=== PATIENT | female | born 1945 | race Caucasian/White ===

== ENCOUNTER 2016-10-26 11:45 | Outpatient (CLI) ==
[2014-03-17 21:26] VITALS: BMI 24.8
[2016-10-26 12:06] LABS: BILIRUBIN,URINE Negative (NEGATIVE); KETONES,URINE Negative (NEGATIVE); LEUKOCYTE ESTERASE ,URINE 2+ (NEGATIVE); NITRITE,URINE Negative (NEGATIVE); PROTEIN,URINE Negative (NEGATIVE); URINE, BLOOD Negative (NEGATIVE)
[2016-10-26 12:08] LABS: ADD URINE MICROSCOPIC YES
[2016-10-26 12:16] LABS: BACTERIA,URINE TRACE (NOT PRESENT)
== END 2016-10-26 11:46 | disposition home or self-care (01) ==
LOC: LAB 11:45
PROVIDERS: ATTEND Internal Medicine
DX: N39.0 Urinary tract infection, site not specified (principal)
CPT/HCPCS: 81001; 87086

== ENCOUNTER 2017-06-27 10:02 | Day surgery (SDC) | payer OTHER ==
[2014-03-17 21:26] VITALS: BMI 24.8
[2017-06-27] MEDS ORDERED: DIPRIVAN 20 ML VIAL IVP ONE (12:20)
[2017-06-27] MEDS ORDERED: VERSED ONE (12:20)
[2017-06-27] MEDS ORDERED: ATROPINE SULFATE ONE (12:20)
[2017-06-27 13:58] VITALS: BP 122/78; TEMP 98
--- NOTE | 2017-08-02 08:21 | OP ---
PROCEDURE: COLONOSCOPY TO THE CECUM WITH SNARE POLYPECTOMY. ENDOSCOPIST: Suleman ZULUAGA M.D. INDICATION: HISTORY OF POLYPS INSTRUMENT: [id number]. MEDICATION: PER ANESTHESIA. DATE OF LAST COLONOSCOPY: 2013 PROCEDURE: The patient was positioned for colonoscopy. The digital rectal exam was negative. The colonoscope was inserted through the anus and advanced to the cecum. The cecum was identified using the ileocecal valve and the appendiceal orifice as landmarks. The scope was slowly withdrawn through an adequately prepped colon. Polyps were removed in the cecum and the ascending colon using snare cautery. The patient had some bradycardia which was treated with Atropine. Diverticuli were noted in the left colon. Retroflex exam was otherwise negative. She tolerated the procedure without immediate complication. Withdraw time 10 minutes and 10 seconds. PLAN: 1. Suggest repeat colonoscopy in 5 years. CC: Dr. Cayden PATHAK
== END 2017-06-27 14:18 | disposition home or self-care (01) ==
LOC: SURG 10:02
PROVIDERS: ATTEND Internal Medicine Gastroenterology
DX: Z09 Encounter for follow-up examination after completed treatment for conditions other than malignant neoplasm (principal); Z86.010 Personal history of colon polyps; D12.2 Benign neoplasm of ascending colon; D12.0 Benign neoplasm of cecum; K57.30 Diverticulosis of large intestine without perforation or abscess without bleeding; R00.1 Bradycardia, unspecified

== ENCOUNTER 2017-07-05 09:56 | Outpatient (CLI) ==
[2014-03-17 21:26] VITALS: BMI 24.8
[2017-07-05] MEDS ORDERED: PROLIA SUBCUT STA (10:01)
== END 2017-07-05 09:57 | disposition home or self-care (01) ==
LOC: OPMED 09:56
PROVIDERS: ATTEND Internal Medicine
DX: M81.0 Age-related osteoporosis without current pathological fracture (principal)
CPT/HCPCS: 96372

== ENCOUNTER 2018-01-31 11:37 | Outpatient (CLI) ==
[2014-03-17 21:26] VITALS: BMI 24.8
--- NOTE | 2018-01-31 13:25 | DI ---
EXAM: Three views of the right shoulder. History: Right shoulder pain. Findings: No acute fracture or dislocation. Calcifications seen along the course of the rotator cuf f tendons. Joint spaces are relatively preserved. Impression: 1. No acute osseous abnormality. 2. Probable calcific tendonitis of the rotator cuff
== END 2018-01-31 11:38 | disposition home or self-care (01) ==
LOC: RAD 11:37
PROVIDERS: ATTEND Nurse Practitioner
DX: M25.511 Pain in right shoulder (principal)

== ENCOUNTER 2018-04-06 11:00 | Outpatient (RCR) ==
[2014-03-17 21:26] VITALS: BMI 24.8
--- NOTE | 2018-03-24 15:03 | RS.OTEVAL ---
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 Level of Function: Pt is favoring her RUE and using the LUE for most ADLs. Pt is driving and has pain with RUE shoulder abduction. Functional Limitations: Self Care, Reaching, Pushing, Pulling, Lifting, Carrying Current Complaints/Gains: Pt has pain of 6/10 in RUE shoulder abducton and then when she moves her arm she hurst more. Medical History Medical History: Arthritis Medical History Comments:: Shoulder pain for 6 months while taking care of her mother. Pt has had recurrent UTI and was told to stop caffeine and citrus foods to reduce acidity. Surgical History Comments:: hysterectomy, cystocele, rectocele, gall bladder, cataract, Knee- meniscal, tubal ligation, breast biopsies, tonsillectomy. Smoking Status: Never smoker Hx Home Medications: Pravachol, cymbalta, tramadol, tizanidine HCL, Tizanidine HCL, XANAX, Prednisone, Topamax, Fish oil, [place], Calcium, Glucosamine, Miralax , B12, Adrenal cortex, Estradol Vag. Cream Patient's Goals: To be able to use the RUE without pain. Pain Assessment - Pain Description Pain Description: Sharp, Acute Pain Location: Right detoid area and posterior scapula Pain Description: sharp Current Pain Intensity: 6 Worst Pain Intensity: 10 Functional Outcome Measures UE Functional Index: 55 - G Codes & Severity Modifier G Codes: Current is CK, Goal is CI Source of G Code score: Carrying, moving, and handling. Observation - Observation Posture: Forward Head, Rounded Shoulders Handedness: Right Shoulder ROM: Left WFL's Shoulder Muscle Strength: Left WFL's - Right Shoulder ROM Right Shoulder Flexion: 145 Right Shoulder Extension: 50 Right Shoulder Abduction: 95 (Had increased pain) Right Shoulder Horizontal Abduction: 35 Right Shoulder Horizontal Adduction: 35 Right Shoulder Internal Rotation: 63 Right Shoulder External Rotation: 35 (Pt had increased pain ) Right Shoulder ROM Limitations: Soft Tissue Tightness, Muscle Weakness, Pain - Left Shoulder Strength Left Shoulder Flexion: 4+ Good + Left Shoulder Extension: 4+ Good + Left Shoulder Abduction: 4+ Good + Left Shoulder Adduction: 4+ Good + Left Shoulder External Rotation: 4+ Good + Left Shoulder Internal Rotation: 4+ Good + - Right Shoulder Strength Right Shoulder Flexion: 3- Fair- Right Shoulder Extension: 3- Fair- Right Shoulder Abduction: 3- Fair- Right Shoulder Adduction: 3- Fair- Right Shoulder External Rotation: 3- Fair- Right Shoulder Internal Rotation: 3- Fair- Elbow ROM: Bilaterally WFL's Elbow Muscle Strength: Bilaterally WFL's - Left Elbow Strength Left Elbow Extension: 4 Good Left Elbow Flexion: 4 Good Left Forearm Pronation: 4 Good Left Forearm Supination: 4 Good - Right Elbow Strength Right Elbow Extension: 3 Fair Right Elbow Flexion: 3 Fair Right Forearm Pronation: 3 Fair Right Forearm Supination: 3 Fair Wrist ROM: Bilaterally WFL's Wrist Muscle Strength: Bilaterally WFL's (Pt's clinical product specialist was not tested due to her arthritic digits hurting her.) - Left Wrist Strength Left Wrist Extension: 4+ Good + Left Wrist Flexion: 4+ Good + Left Wrist Radial Deviation: 4+ Good + Left Wrist Ulnar Deviation: 4+ Good + Left Forearm Pronation: 4+ Good + Left Forearm Supination: 4+ Good + - Right Wrist Strength Right Wrist Extension: 4 Good Right Wrist Flexion: 4 Good Right Wrist Radial Deviation: 4 Good Right Wrist Ulnar Deviation: 4 Good Right Forearm Pronation: 4 Good Right Forearm Supination: 4 Good Palpation Palpation Findings: Tenderness, Trigger Point Sensation Right Upper Extremity: Intact/Normal Right Lower Extremity: Intact/Normal Left Upper Extremity: Intact/Normal Interventions - Exercise/Activities Exercise/Activities/Manual Therapy: Manual therapy to tender points and trigger points to decrease pain in right serratus posterior, subscapularis on posterior scapula. CP to right shoulder - Objective Findings Objective Findings:: Pt has inflammation in right shoulder and pain in the right deltoid and posterior scapula. Pt has limited external rotation, taut muscles in the pectorailis muscle. - Charges Timed Code Treatment Minutes: 65 Total Treatment Time: 60 Procedures billed for this date of service:: Evaluation- medium, MT x 2 EVALUATION COMPLEXITY LEVEL: HISTORY: Medium, EXAM OF BODY SYSTEMS: Medium, CLINICAL DECISION MAKING: Medium Assessment Assessment: Pt has pain with RUE shoulder ABD, and limited EXT. ROT. Pt has pain with Ext. Rot. Patient Education: Education of diagnosis, Body/Joint mechanics, Home Exercise Program, Education of Plan of Care Rehab Potential: Good Problems/Comments: Pt has pain with abduction of RUE shoulder. Pt has weakness of RUE. Short Term Goals Goal #1: Pt pain to decrease to 2-4 in RUE shoulder Goal to be met by: 04/07/18 Goal #2: Pt to be independent with home exercise program. Goal to be met by: 04/07/18 Goal #3: Pt to increase strength of RUE to 4-/5. Goal to be met by: 04/07/18 Goal #4: Pt to increase RUE ABD to 0-135. Goal to be met by: 04/07/18 Private Watchman Goals Goal #1: Pt pain to decrease to 0-2 in RUE shoulder Goal to be met by: 04/24/18 Goal to be met by: 04/21/18 Goal #3: Pt to increase strength of RUE to 4+/5. Goal to be met by: 04/21/18 Goal #4: Pt to have full AROM of RUE in order to complete ADLS. Goal to be met by: 04/21/18 Plan - Treatment to be provided Procedures: Therapeutic Exercises, Therapeutic Activity, Neuromuscular Rehab, Manual Therapy, Patient Education Modalities: Electrical Stimulation, Ultrasound/Phonophoresis, Class IV Laser, Cryotherapy, Hot Packs - Treatment Plan Frequency: 3 X week Duration: 4 weeks ORDER # VISITS AND/OR THROUGH DATE: 12 - Treatment Code (1) Shoulder stiffness Qualifiers: Laterality: right Qualified Code(s): M25.611 - Stiffness of right shoulder , not elsewhere classified Comments: M25.611 Right shoulder stiffness (2) Shoulder pain, right Code(s): M25.511 - PAIN IN RIGHT SHOULDER Comments: M25.511 Right shoulder pain.
--- NOTE | 2018-03-28 13:14 | RS.OTDNOTE ---
Subjective Date of Note: 03/28/18 Visit #: 2 Date of Evaluation: 03/24/18 Treatment Diagnosis: RTC disorder of bursae & tendons in shoulder *Precautions: at risk for frozen shoulder Current Complaints/Gains: Pt states UE pain with c/o numbness at times from yrs of taking care of her mother. States she has a tens unit at home but has not utilized for UE pain. States she has had injections that only helped a little. Pain Assessment - Pain Description Pain Description: Sharp, Acute Pain Location: Right detoid area and posterior scapula Pain Description: sharp Modalities - Treatment Modality: Electrical Stim Unattended Parameters/Method Applied: Hi-volt to pt tolerance Treatment Area: shoulder Patient Position: Sitting - Hot Pack/Cryotherapy Treatment: Cryotherapy Comments:: CP applied x 20 mins during estim Interventions - Exercise/Activities Exercise/Activities/Manual Therapy: Manual therapy to tender points and trigger points to decrease pain in right serratus posterior, subscapularis on posterior scapula. PROM/gentle stretching and isometric ex's also performed 07/10. - Objective Findings Objective Findings:: Pt has inflammation in right shoulder and pain in the right deltoid and posterior scapula. Pt has limited external rotation, taut muscles in the pectorailis muscle. - Charges Timed Code Treatment Minutes: 58 Total Treatment Time: 61 Procedures billed for this date of service:: CP ESTIM EX MT Assessment Patient Education: Education of diagnosis, Body/Joint mechanics, Home Exercise Program, Home Safety, Activity Modification, Education of Plan of Care Patient demonstrates compliance with HEP?: Yes Short Term Goals Goal #1: Pt pain to decrease to 2-4 in RUE shoulder Goal to be met by: 04/07/18 Progress towards goal: Progressing Goal #2: Pt to be independent with home exercise program. Goal to be met by: 04/07/18 Progress towards goal: Progressing Goal #3: Pt to increase strength of RUE to 4-/5. Goal to be met by: 04/07/18 Progress towards goal: Progressing Goal #4: Pt to increase RUE ABD to 0-135. Goal to be met by: 04/07/18 Progress towards goal: Progressing Care Home Goals Goal #1: Pt pain to decrease to 0-2 in RUE shoulder Goal to be met by: 04/24/18 Progress towards goal: Progressing Goal to be met by: 04/21/18 Progress towards goal: Progressing Goal #3: Pt to increase strength of RUE to 4+/5. Goal to be met by: 04/21/18 Progress towards goal: Progressing Goal #4: Pt to have full AROM of RUE in order to complete ADLS. Goal to be met by: 04/21/18 Progress towards goal: Progressing Plan PLAN OF CARE EXPIRES ON:: 04/21/18 ORDER # VISITS AND/OR THROUGH DATE: 12 PLAN: Cont per POC to max fx use, strength, ROM with decreased c/o pain
--- NOTE | 2018-03-30 13:27 | RS.OTDNOTE ---
Subjective Date of Note: 03/30/18 Visit #: 3 Date of Evaluation: 03/24/18 Treatment Diagnosis: RTC disorder of bursae & tendons in shoulder *Precautions: at risk for frozen shoulder Current Complaints/Gains: Pt states decreased c/o pain. States pain at 0 at times and increases with abd/flexion, "But doesn't seem as tight". Pain Assessment - Pain Description Pain Description: Sharp, Acute Pain Location: Right detoid area and posterior scapula Pain Description: sharp Modalities - Treatment Modality: US with ES (Comb.) Parameters/Method Applied: X20 mins to pt tolerance of estim with US at 1.5w/ cm2 anterior/middle deltoid. Patient Position: Sitting - Hot Pack/Cryotherapy Treatment: Cryotherapy Comments:: CP X20 mins Interventions - Exercise/Activities Exercise/Activities/Manual Therapy: Manual therapy to tender points and trigger points to decrease pain in right serratus posterior, subscapularis on posterior scapula. PROM/gentle stretching and isometric ex's also performed 07/10. Pt ed on codman's ex and door frame stretches. - Objective Findings Objective Findings:: Pt has inflammation in right shoulder and pain in the right deltoid and posterior scapula. Pt has limited external rotation, taut muscles in the pectorailis muscle. - Charges Timed Code Treatment Minutes: 48 Total Treatment Time: 48 Procedures billed for this date of service:: CP US/COMBO EX Assessment Patient Education: Education of diagnosis, Body/Joint mechanics, Home Exercise Program, Home Safety, Activity Modification, Education of Plan of Care Patient demonstrates compliance with HEP?: Yes Short Term Goals Goal #1: Pt pain to decrease to 2-4 in RUE shoulder Goal to be met by: 04/07/18 Progress towards goal: Progressing Goal #2: Pt to be independent with home exercise program. Goal to be met by: 04/07/18 Progress towards goal: Progressing Goal #3: Pt to increase strength of RUE to 4-/5. Goal to be met by: 04/07/18 Progress towards goal: Partially Met Goal #4: Pt to increase RUE ABD to 0-135. Goal to be met by: 04/07/18 Progress towards goal: Progressing Nursing Home Goals Goal #1: Pt pain to decrease to 0-2 in RUE shoulder Goal to be met by: 04/24/18 Progress towards goal: Progressing Goal to be met by: 04/21/18 Progress towards goal: Progressing Goal #3: Pt to increase strength of RUE to 4+/5. Goal to be met by: 04/21/18 Progress towards goal: Progressing Goal #4: Pt to have full AROM of RUE in order to complete ADLS. Goal to be met by: 04/21/18 Progress towards goal: Progressing Plan PLAN OF CARE EXPIRES ON:: 04/21/18 ORDER # VISITS AND/OR THROUGH DATE: 12 PLAN: Cont per POC to max fx UE strength and AROM with decreased c/o pain.
--- NOTE | 2018-03-31 15:59 | RS.OTDNOTE ---
Subjective Date of Note: 03/31/18 Visit #: 4 Date of Evaluation: 03/24/18 Treatment Diagnosis: RTC disorder of bursae & tendons in shoulder *Precautions: at risk for frozen shoulder Current Complaints/Gains: Pt states she can tell improvement in her UE. States pain reaches high of 6-7 with AROM/abduction. States GS is weak but seems to be getting a little better. GS at 24#(R), 34#(L). Pain Assessment - Pain Description Pain Description: Sharp, Acute Pain Location: Right detoid area and posterior scapula Pain Description: sharp Current Pain Intensity: 2-3 Worst Pain Intensity: 6-7 Modalities - Treatment Modality: US with ES (Comb.) Parameters/Method Applied: To pt tolerance x 10 mins Patient Position: Sitting - Hot Pack/Cryotherapy Treatment: Cryotherapy Comments:: X10 mins following TE Interventions - Exercise/Activities Exercise/Activities/Manual Therapy: Manual therapy to tender points and trigger points to decrease pain in right serratus posterior, subscapularis on posterior scapula. PROM/gentle stretching and isometric ex's also performed 07/10. Pt ed on codman's ex and door frame stretches. Gradded digi-flex performed yellow- blue - Objective Findings Objective Findings:: Pt has inflammation in right shoulder and pain in the right deltoid and posterior scapula. Pt has limited external rotation, taut muscles in the pectorailis muscle. - Charges Timed Code Treatment Minutes: 48 Total Treatment Time: 51 Procedures billed for this date of service:: US/COMBO EX CP Assessment Patient Education: Education of diagnosis, Body/Joint mechanics, Home Exercise Program, Home Safety, Activity Modification, Education of Plan of Care Patient demonstrates compliance with HEP?: Yes Short Term Goals Goal #1: Pt pain to decrease to 2-4 in RUE shoulder Goal to be met by: 04/07/18 Progress towards goal: Progressing Goal #2: Pt to be independent with home exercise program. Goal to be met by: 04/07/18 Progress towards goal: Progressing Goal #3: Pt to increase strength of RUE to 4-/5. Goal to be met by: 04/07/18 Progress towards goal: Partially Met Goal #4: Pt to increase RUE ABD to 0-135. Goal to be met by: 04/07/18 Progress towards goal: Partially Met Group Home Goals Goal #1: Pt pain to decrease to 0-2 in RUE shoulder Goal to be met by: 04/24/18 Progress towards goal: Progressing Goal to be met by: 04/21/18 Progress towards goal: Progressing Goal #3: Pt to increase strength of RUE to 4+/5. Goal to be met by: 04/21/18 Progress towards goal: Progressing Goal #4: Pt to have full AROM of RUE in order to complete ADLS. Goal to be met by: 04/21/18 Progress towards goal: Progressing Plan PLAN OF CARE EXPIRES ON:: 04/24/18 ORDER # VISITS AND/OR THROUGH DATE: 12 PLAN: Cont per pOC to max fx use and strength/ROM
--- NOTE | 2018-04-04 14:52 | RS.OTDNOTE ---
Subjective Date of Note: 04/04/18 Visit #: 5 Date of Evaluation: 03/24/18 Treatment Diagnosis: RTC disorder of bursae & tendons in shoulder *Precautions: at risk for frozen shoulder Current Complaints/Gains: Pt states increased AROM with decreased c/o pain. Pain Assessment - Pain Description Pain Description: Sharp, Acute Pain Location: Right detoid area and posterior scapula Pain Description: sharp Current Pain Intensity: 2-3 Worst Pain Intensity: 5 Modalities - Treatment Modality: Ultrasound Parameters/Method Applied: 1.5w/cm2 x 10 mins Interventions - Exercise/Activities Exercise/Activities/Manual Therapy: Manual therapy to tender points and trigger points to decrease pain in right serratus posterior, subscapularis on posterior scapula. PROM/gentle stretching and isometric ex's also performed 07/10. Pt ed on codman's ex and door frame stretches. Gradded digi-flex performed yellow- blue - Objective Findings Objective Findings:: Pt has inflammation in right shoulder and pain in the right deltoid and posterior scapula. Pt has limited external rotation, taut muscles in the pectorailis muscle. - Charges Timed Code Treatment Minutes: 47 Total Treatment Time: 59 Procedures billed for this date of service:: CP US EX MT Assessment Patient Education: Education of diagnosis, Body/Joint mechanics, Home Exercise Program, Home Safety, Activity Modification, Education of Plan of Care Patient demonstrates compliance with HEP?: Yes Short Term Goals Goal #1: Pt pain to decrease to 2-4 in RUE shoulder Goal to be met by: 04/07/18 Progress towards goal: Progressing Goal #2: Pt to be independent with home exercise program. Goal to be met by: 04/07/18 Progress towards goal: Progressing Goal #3: Pt to increase strength of RUE to 4-/5. Goal to be met by: 04/07/18 Progress towards goal: Partially Met Goal #4: Pt to increase RUE ABD to 0-135. Goal to be met by: 04/07/18 Progress towards goal: Partially Met Compensation And Benefits Advisor Goals Goal #1: Pt pain to decrease to 0-2 in RUE shoulder Goal to be met by: 04/24/18 Progress towards goal: Progressing Goal to be met by: 04/21/18 Progress towards goal: Progressing Goal #3: Pt to increase strength of RUE to 4+/5. Goal to be met by: 04/21/18 Progress towards goal: Progressing Goal #4: Pt to have full AROM of RUE in order to complete ADLS. Goal to be met by: 04/21/18 Progress towards goal: Progressing Plan PLAN OF CARE EXPIRES ON:: 04/21/18 ORDER # VISITS AND/OR THROUGH DATE: 12 PLAN: cont per POC to max fx use and UE strength.
--- NOTE | 2018-04-06 14:10 | RS.OTDNOTE ---
Subjective Date of Note: 04/06/18 Visit #: 6 Date of Evaluation: 03/24/18 Treatment Diagnosis: RTC disorder of bursae & tendons in shoulder *Precautions: at risk for frozen shoulder Current Complaints/Gains: Pt states UE feels better. States 0 pain with lifting arm up or backwards this date but states "tightness" Pain Assessment - Pain Description Pain Description: Sharp, Acute Pain Location: Right detoid area and posterior scapula Pain Description: sharp Current Pain Intensity: 0 Worst Pain Intensity: 3 Modalities - Treatment Modality: US with ES (Comb.) Parameters/Method Applied: x15 mins, US to deltoid/AC joint and estim to posterior shoulder to max of 7V - Hot Pack/Cryotherapy Treatment: Cryotherapy Comments:: CP and ice massage performed Interventions - Exercise/Activities Exercise/Activities/Manual Therapy: Manual therapy to tender points and trigger points to decrease pain in right serratus posterior, subscapularis on posterior scapula. PROM/gentle stretching and isometric ex's also performed 10/3 x 4 directions. Pt ed on codman's ex and door frame stretches. Gradded digi-flex performed yellow-blue - Objective Findings Objective Findings:: Pt has inflammation in right shoulder and pain in the right deltoid and posterior scapula. Pt has limited external rotation, taut muscles in the pectorailis muscle. - Charges Timed Code Treatment Minutes: 50 Total Treatment Time: 52 Procedures billed for this date of service:: CP EX US combo Assessment Patient Education: Education of diagnosis, Body/Joint mechanics, Home Exercise Program, Home Safety, Activity Modification, Education of Plan of Care Patient demonstrates compliance with HEP?: Yes Short Term Goals Goal #1: Pt pain to decrease to 2-4 in RUE shoulder Goal to be met by: 04/07/18 Progress towards goal: Met Goal #2: Pt to be independent with home exercise program. Goal to be met by: 04/07/18 Progress towards goal: Partially Met Goal #3: Pt to increase strength of RUE to 4-/5. Goal to be met by: 04/07/18 Progress towards goal: Partially Met Goal #4: Pt to increase RUE ABD to 0-135. Goal to be met by: 04/07/18 Progress towards goal: Partially Met [facility] Goals Goal #1: Pt pain to decrease to 0-2 in RUE shoulder Goal to be met by: 04/24/18 Progress towards goal: Progressing Goal to be met by: 04/21/18 Progress towards goal: Progressing Goal #3: Pt to increase strength of RUE to 4+/5. Goal to be met by: 04/21/18 Progress towards goal: Progressing Goal #4: Pt to have full AROM of RUE in order to complete ADLS. Goal to be met by: 04/21/18 Progress towards goal: Progressing Plan PLAN OF CARE EXPIRES ON:: 04/21/18 ORDER # VISITS AND/OR THROUGH DATE: 12 PLAN: Pt to continue per POC.
--- NOTE | 2018-04-07 11:03 | RS.OTCXNS ---
OT Case Note Date of Scheduled Appointment: 04/07/18 Type: Cancel (Pt's granddgtr is sick)
== END 2018-04-08 23:59 ==
PROVIDERS: ATTEND Nurse Practitioner
DX: M75.51 Bursitis of right shoulder (principal)

== ENCOUNTER 2018-04-20 11:00 | Outpatient (RCR) ==
[2014-03-17 21:26] VITALS: BMI 24.8
--- NOTE | 2018-04-11 09:14 | RS.OTDNOTE ---
Subjective Date of Note: 04/10/18 Visit #: 7 Date of Evaluation: 03/24/18 Treatment Diagnosis: RTC disorder of bursae & tendons in shoulder *Precautions: at risk for frozen shoulder Current Complaints/Gains: Pt states UE feels much better and has no c/o pain in bicep and middle deltoid now but has "a spot" that continues to hurt. Pain Assessment - Pain Description Pain Description: Dull, Throbbing Pain Location: Right detoid area and posterior scapula Pain Description: sharp Current Pain Intensity: 0 Worst Pain Intensity: 4 Modalities - Treatment Modality: Ultrasound Parameters/Method Applied: Pulsed at 50%, .04w/cm2 x 10 mins Treatment Area: AC joint Patient Position: Sitting - Hot Pack/Cryotherapy Treatment: Cryotherapy (Ice massage performed along with CP applied to shoulder) Interventions - Exercise/Activities Exercise/Activities/Manual Therapy: Manual therapy to tender points and trigger points to decrease pain in right serratus posterior, subscapularis on posterior scapula. PROM/gentle stretching and isometric ex's also performed 10/3 x 4 directions. Pt ed on codman's ex and door frame stretches. Gradded digi-flex performed yellow-blue. - Objective Findings Objective Findings:: Pt has inflammation in right shoulder and pain in the right deltoid and posterior scapula. Pt has limited external rotation, taut muscles in the pectorailis muscle. - Charges Timed Code Treatment Minutes: 48 Total Treatment Time: 48 Procedures billed for this date of service:: CP US MT Assessment Patient Education: Education of diagnosis, Body/Joint mechanics, Home Exercise Program, Home Safety, Activity Modification, Education of Plan of Care Patient demonstrates compliance with HEP?: Yes Short Term Goals Goal #1: Pt pain to decrease to 2-4 in RUE shoulder Goal to be met by: 04/07/18 Progress towards goal: Met Goal #2: Pt to be independent with home exercise program. Goal to be met by: 04/07/18 Progress towards goal: Met Goal #3: Pt to increase strength of RUE to 4-/5. Goal to be met by: 04/07/18 Progress towards goal: Met Goal #4: Pt to increase RUE ABD to 0-135. Goal to be met by: 04/07/18 Progress towards goal: Met Mud Analysis Supervisor Goals Goal #1: Pt pain to decrease to 0-2 in RUE shoulder Goal to be met by: 04/24/18 Progress towards goal: Progressing Goal to be met by: 04/21/18 Progress towards goal: Progressing Goal #3: Pt to increase strength of RUE to 4+/5. Goal to be met by: 04/21/18 Progress towards goal: Progressing Goal #4: Pt to have full AROM of RUE in order to complete ADLS. Goal to be met by: 04/21/18 Progress towards goal: Progressing Plan PLAN OF CARE EXPIRES ON:: 04/24/18 ORDER # VISITS AND/OR THROUGH DATE: 12 PLAN: Cont per POC
--- NOTE | 2018-04-11 13:35 | RS.OTDNOTE ---
Subjective Date of Note: 04/11/18 Visit #: 8 Date of Evaluation: 03/24/18 Treatment Diagnosis: RTC disorder of bursae & tendons in shoulder *Precautions: at risk for frozen shoulder Current Complaints/Gains: States she feels improvement with UE pain except " that one spot." States she will perform HEP and apply CP over the wk. Pain Assessment - Pain Description Pain Description: Dull, Throbbing Pain Location: Right detoid area and posterior scapula Pain Description: sharp Current Pain Intensity: 0 Worst Pain Intensity: 3 Modalities - Treatment Modality: Ultrasound Parameters/Method Applied: .04w/cm2 x 10 mins Treatment Area: shoulder with UE in abd Patient Position: Supine - Treatment Modality: Class 4 Laser Parameters/Method Applied: Chronic pain protocol Patient Position: Supine Interventions - Exercise/Activities Exercise/Activities/Manual Therapy: Manual therapy to tender points and trigger points to decrease pain in right serratus posterior, subscapularis on posterior scapula. PROM/gentle stretching and isometric ex's also performed 10/3 x 4 directions. Pt ed on codman's ex and door frame stretches. Gradded digi-flex performed yellow-blue. - Objective Findings Objective Findings:: Pt has inflammation in right shoulder and pain in the right deltoid and posterior scapula. Pt has limited external rotation, taut muscles in the pectorailis muscle. - Charges Timed Code Treatment Minutes: 50 Total Treatment Time: 58 Procedures billed for this date of service:: CP US MT (0 charge laser) Assessment Patient Education: Education of diagnosis, Body/Joint mechanics, Home Exercise Program, Home Safety, Activity Modification, Education of Plan of Care Patient demonstrates compliance with HEP?: Yes Short Term Goals Goal #1: Pt pain to decrease to 2-4 in RUE shoulder Goal to be met by: 04/07/18 Progress towards goal: Met Goal #2: Pt to be independent with home exercise program. Goal to be met by: 04/07/18 Progress towards goal: Met Goal #3: Pt to increase strength of RUE to 4-/5. Goal to be met by: 04/07/18 Progress towards goal: Met Goal #4: Pt to increase RUE ABD to 0-135. Goal to be met by: 04/07/18 Progress towards goal: Met Mcfp Goals Goal #1: Pt pain to decrease to 0-2 in RUE shoulder Goal to be met by: 04/24/18 Progress towards goal: Progressing Goal to be met by: 04/21/18 Progress towards goal: Progressing Goal #3: Pt to increase strength of RUE to 4+/5. Goal to be met by: 04/21/18 Progress towards goal: Progressing Goal #4: Pt to have full AROM of RUE in order to complete ADLS. Goal to be met by: 04/21/18 Progress towards goal: Progressing Plan PLAN OF CARE EXPIRES ON:: 04/21/18 ORDER # VISITS AND/OR THROUGH DATE: 12 PLAN: Pt to cont to max fx strength and I with all ADL's
--- NOTE | 2018-04-18 14:44 | RS.OTDNOTE ---
Subjective Date of Note: 04/18/18 Visit #: 9 Date of Evaluation: 03/24/18 Treatment Diagnosis: RTC disorder of bursae & tendons in shoulder *Precautions: at risk for frozen shoulder Current Complaints/Gains: Pt states UE pain is much better. States she had an estate sale at her mother's house this wknd but tried to not lift a lot and did apply a CP during the day. Pain Assessment - Pain Description Pain Description: Dull, Throbbing Pain Location: Right detoid area and posterior scapula Pain Description: sharp Current Pain Intensity: 0-1 Worst Pain Intensity: 3 Modalities - Treatment Modality: Ultrasound Parameters/Method Applied: 1.5w/cm2 x 10 mins to x 2 areas (medial and lateral inferior border of scapula) Treatment Area: UE in abucted ER Patient Position: Supine - Hot Pack/Cryotherapy Treatment: Cryotherapy Interventions - Exercise/Activities Exercise/Activities/Manual Therapy: Manual therapy to tender points and trigger points to decrease pain in right serratus posterior, subscapularis on posterior scapula. PROM/gentle stretching and isometric ex's also performed 10/3 x 4 directions. Pt ed on codman's ex and door frame stretches. Gradded digi-flex performed yellow-blue. - Objective Findings Objective Findings:: Pt has inflammation in right shoulder and pain in the right deltoid and posterior scapula. Pt has limited external rotation, taut muscles in the pectorailis muscle. - Charges Timed Code Treatment Minutes: 48 Total Treatment Time: 58 Procedures billed for this date of service:: CP USCOMBO EX MT Assessment Patient Education: Education of diagnosis, Body/Joint mechanics, Home Exercise Program, Home Safety, Activity Modification, Education of Plan of Care Patient demonstrates compliance with HEP?: Yes Short Term Goals Goal #1: Pt pain to decrease to 2-4 in RUE shoulder Goal to be met by: 04/07/18 Progress towards goal: Met Goal #2: Pt to be independent with home exercise program. Goal to be met by: 04/07/18 Progress towards goal: Met Goal #3: Pt to increase strength of RUE to 4-/5. Goal to be met by: 04/07/18 Progress towards goal: Met Goal #4: Pt to increase RUE ABD to 0-135. Goal to be met by: 04/07/18 Progress towards goal: Met Loan Consultant Goals Goal #1: Pt pain to decrease to 0-2 in RUE shoulder Goal to be met by: 04/24/18 Progress towards goal: Progressing Goal to be met by: 04/21/18 Progress towards goal: Progressing Goal #3: Pt to increase strength of RUE to 4+/5. Goal to be met by: 04/21/18 Progress towards goal: Progressing Goal #4: Pt to have full AROM of RUE in order to complete ADLS. Goal to be met by: 04/21/18 Progress towards goal: Partially Met Plan PLAN OF CARE EXPIRES ON:: 04/24/18 ORDER # VISITS AND/OR THROUGH DATE: 12 PLAN: Cont per POC
--- NOTE | 2018-04-20 16:19 | RS.OTDNOTE ---
Subjective Date of Note: 04/20/18 Visit #: 10 Date of Evaluation: 03/24/18 Treatment Diagnosis: RTC disorder of bursae & tendons in shoulder *Precautions: at risk for frozen shoulder Current Complaints/Gains: Pt states she feels 90% better. States she has been karl and writing easier. States pain remains and demo abduction. Pain Assessment - Pain Description Pain Description: Dull, Throbbing Pain Location: Right detoid area and posterior scapula Pain Description: sharp Worst Pain Intensity: 3 Modalities - Treatment Modality: US with ES (Comb.) Parameters/Method Applied: 1.5w/cm2 x 10 mins - Hot Pack/Cryotherapy Treatment: Cryotherapy Comments:: x 10 mins Interventions - Exercise/Activities Exercise/Activities/Manual Therapy: Manual therapy to tender points and trigger points to decrease pain in right serratus posterior, subscapularis on posterior scapula. PROM/gentle stretching and isometric ex's also performed 10/3 x 4 directions. Pt ed on codman's ex and door frame stretches. Gradded digi-flex performed yellow-blue. - Objective Findings Objective Findings:: Pt has inflammation in right shoulder and pain in the right deltoid and posterior scapula. Pt has limited external rotation, taut muscles in the pectorailis muscle. - Charges Timed Code Treatment Minutes: 42 Total Treatment Time: 50 Procedures billed for this date of service:: CP UScombo EX Assessment Patient Education: Education of diagnosis, Body/Joint mechanics, Home Exercise Program, Home Safety, Activity Modification, Education of Plan of Care Patient demonstrates compliance with HEP?: Yes Short Term Goals Goal #1: Pt pain to decrease to 2-4 in RUE shoulder Goal to be met by: 04/07/18 Progress towards goal: Met Goal #2: Pt to be independent with home exercise program. Goal to be met by: 04/07/18 Progress towards goal: Met Goal #3: Pt to increase strength of RUE to 4-/5. Goal to be met by: 04/07/18 Progress towards goal: Met Goal #4: Pt to increase RUE ABD to 0-135. Goal to be met by: 04/07/18 Progress towards goal: Met Mcfp Goals Goal #1: Pt pain to decrease to 0-2 in RUE shoulder Goal to be met by: 04/24/18 Progress towards goal: Progressing Goal to be met by: 04/21/18 Progress towards goal: Progressing Goal #3: Pt to increase strength of RUE to 4+/5. Goal to be met by: 04/21/18 Progress towards goal: Progressing Goal #4: Pt to have full AROM of RUE in order to complete ADLS. Goal to be met by: 04/21/18 Progress towards goal: Partially Met Plan PLAN OF CARE EXPIRES ON:: 04/24/18 ORDER # VISITS AND/OR THROUGH DATE: 12 PLAN: Cont tx x 1-2 sessions and DC I with HEP and ice pack applications
--- NOTE | 2018-04-24 10:38 | RS.OTDCSUM ---
Subjective Date of Discharge: 04/24/18 Date of Evaluation: 03/24/18 Number of Visits: 10 Treatment Diagnosis: Right RTC disorder of bursae and tendons of shoulder. Current Level of Function: CI at 16% impaired Current Complaints/Gains: Pt has 1-2/10 pain with Right shoulder abduction. Pt reports she is 90% better. Pain Assessment - Pain Description Pain Description: Dull, Throbbing Pain Location: Right detoid area and posterior scapula Pain Description: sharp Current Pain Intensity: . Worst Pain Intensity: 3 Functional Outcome Measures UE Functional Index: 67 - G Codes & Severity Modifier G Codes: CI for Carry, moving, and handling. Source of G Code score: Carry, moving, and handling at 16% impaired Observation - Observation Posture: Forward Head Handedness: Right Shoulder ROM: Bilaterally WFL's Shoulder Muscle Strength: Left WFL's - Right Shoulder Strength Right Shoulder Flexion: 4 Good Right Shoulder Extension: 4 Good Right Shoulder Abduction: 4- Good- Right Shoulder Adduction: 4 Good Right Shoulder External Rotation: 4 Good Right Shoulder Internal Rotation: 4 Good Elbow ROM: Bilaterally WFL's Elbow Muscle Strength: Bilaterally WFL's Wrist ROM: Bilaterally WFL's Wrist Muscle Strength: Bilaterally WFL's Palpation Palpation Findings: Tenderness Comments:: Pt reports there is one spot in my right shoulder that hurts when she completes abduction. Sensation Right Upper Extremity: Intact/Normal Right Lower Extremity: Intact/Normal Left Upper Extremity: Intact/Normal Interventions - Exercise/Activities Exercise/Activities/Manual Therapy: Manual therapy to tender points and trigger points to decrease pain in right serratus posterior, subscapularis on posterior scapula. PROM/gentle stretching and isometric ex's also performed 10/3 x 4 directions. Pt ed on codman's ex and door frame stretches. Gradded digi-flex performed yellow-blue. HOME EXERCISE PROGRAM: Stretches, codmans exercises. - Objective Findings Objective Findings:: Pt is has full AROM of RUE. Pt has 1-2 pain with RUE shoulder abduction. Pt reports she is 90% better. Her impairment is 16%. - Charges Timed Code Treatment Minutes: . Total Treatment Time: . Procedures billed for this date of service:: . Assessment Assessment: Pt is using her RUE and karl her vegetables. Pt reports she has improved her ability to hold her pen and to write. Pt reports she is 90% better. Rehab Potential: Good Problems/Comments: One spot causes her pain with RUE shoulder abduction and her pain is a 1-2/10. Short Term Goals Goal #1: Pt pain to decrease to 2-4 in RUE shoulder Goal to be met by: 04/07/18 Progress towards goal: Met Goal #2: Pt to be independent with home exercise program. Goal to be met by: 04/07/18 Progress towards goal: Met Goal #3: Pt to increase strength of RUE to 4-/5. Goal to be met by: 04/07/18 Progress towards goal: Met Goal #4: Pt to increase RUE ABD to 0-135. Goal to be met by: 04/07/18 Progress towards goal: Met Pickle Processor Goals Goal #1: Pt pain to decrease to 0-2 in RUE shoulder Goal to be met by: 04/24/18 Progress towards goal: Met Goal to be met by: 04/21/18 Progress towards goal: Progressing Goal #3: Pt to increase strength of RUE to 4+/5. Goal to be met by: 04/21/18 Progress towards goal: Met Goal #4: Pt to have full AROM of RUE in order to complete ADLS. Goal to be met by: 04/21/18 Progress towards goal: Met Plan Reason for Discharge:: All Goals Met
== END 2018-05-09 23:59 ==
PROVIDERS: ATTEND Nurse Practitioner
DX: M75.101 Unspecified rotator cuff tear or rupture of right shoulder, not specified as traumatic (principal)

== ENCOUNTER 2018-05-04 11:22 | Outpatient (CLI) ==
[2014-03-17 21:26] VITALS: BMI 24.8
--- NOTE | 2018-05-04 13:34 | DI ---
EXAM: Chest two views HISTORY: Acute bronchitis COMPARISON: 05/23/2013 TECHNIQUE: Two views of the chest were performed FINDINGS: Lungs are hyperinflated. No airspace consolidation. Granulomatous calcification. There is no pleural effusion or pneumothorax. The heart is normal in size. The mediastinal contour is nor mal. There are no acute abnormalities of the bones. IMPRESSION: 1. No acute cardiopulmonary process. 2. Hyperinflated lungs may suggest chronic obstructive pulmonary disease.
== END 2018-05-04 11:23 | disposition home or self-care (01) ==
LOC: RAD 11:22
PROVIDERS: ATTEND Internal Medicine
DX: J20.9 Acute bronchitis, unspecified (principal)

== ENCOUNTER 2018-09-25 10:00 | Outpatient (RCR) ==
[2014-03-17 21:26] VITALS: BMI 24.8
== END 2018-10-09 23:59 ==
PROVIDERS: ATTEND Orthopaedic Surgery
DX: M25.511 Pain in right shoulder (principal); M75.121 Complete rotator cuff tear or rupture of right shoulder, not specified as traumatic; M25.611 Stiffness of right shoulder, not elsewhere classified; Z98.890 Other specified postprocedural states

== ENCOUNTER 2019-03-26 08:28 | Outpatient (CLI) ==
[2014-03-17 21:26] VITALS: BMI 24.8
--- NOTE | 2019-03-26 09:39 | US ---
EXAM: Bilateral carotid artery Doppler History: Dizziness. Technique: Multiple sonographic images through the bilateral internal carotid arteries were obtained . Color duplex Doppler was used to interrogate vascular flow. Findings: The right ICA peak systolic velocity is within normal limits measuring 65 cm/sec. The right ICA/cca PSV ratio is normal at 0.90. The right vertebral artery is patent and demonstrates antegrade flow. Venegas scale images demonstrate mild plaque buildup within the right internal carotid artery. The left ICA peak systolic velocity is within normal limits measuring 64 cm/sec. Left ICA/cca PSV ra zaid is normal at 0.90. The left vertebral artery is patent and demonstrates antegrade flow. Venegas sc leigha images demonstrate mild plaque buildup within the left internal carotid artery. Impression: No significant hemodynamic stenosis of the bilateral internal carotid arteries
== END 2019-03-26 08:29 | disposition home or self-care (01) ==
LOC: RAD 08:28
PROVIDERS: ATTEND Internal Medicine
DX: R42 Dizziness and giddiness (principal)